=== PATIENT | male | born 1985 | race Caucasian/White ===

== ENCOUNTER 2018-02-10 17:32 | Inpatient (IN) | payer OTHER ==
[2018-02-10] MEDS ORDERED: Sodium Chloride 0.9% 1000 ML 1,000 ML IV STA (17:57)
[2018-02-10] MEDS ORDERED: TYLENOL 325 MG ONE (17:58)
[2018-02-10] MEDS ORDERED: Sodium Chloride 0.9% 1000 ML 2,000 ML ONE ×2 (17:59→18:39)
[2018-02-10] MEDS ORDERED: Zithromax 500 MG/ 250 ML NaCl Premix 500 MG/250 ML IVPB IV STA (18:03)
[2018-02-10] MEDS ORDERED: Zosyn 3.375GM/100 Ml D5W 3.375 GM/100 ML IVPB IV STA (18:03)
[2018-02-10] MEDS ORDERED: TYLENOL 325 MG PO STA (18:03)
[2018-02-10 18:06] LABS: Lactic Acid 3.3 (0.4-2.0)
[2018-02-10] MEDS ORDERED: DUONEB 0.5-3 MG/3 ml Neb IH ONE ×2 (18:08→19:23)
[2018-02-10] MEDS: Sodium Chloride 0.9% 1000 ML 1,000 ML IV SCH ×3 (18:10→19:02)
[2018-02-10 18:15] LABS: A-aADO2 43; ABG POTASSIUM 3.2 (3.5-5.1); ABG SITE LEFT RADIAL; ALLEN TEST OK? YES; ARTERIAL BLD GAS O2 SATURATION 97.6 % (95-100); ARTERIAL BLOOD GAS BASE EXCESS -0.3 (-2.0-2.0); ARTERIAL BLOOD GAS FIO2 21 %; ARTERIAL BLOOD GAS PCO2 32 mmHg (35-45); ARTERIAL BLOOD GAS PO2 67 mmHg (75-100); ARTERIAL BLOOD GAS pH 7.46 (7.35-7.45); CARBOXYHEMOGLOBIN 2.9 % THgb (0.0-6.9); HCO3- 22.8 (22-28); HGB O2 SAT 93.5 g/dF (94-100); Methhemoglobin 1.3 % (1.4-1.5); paO2 pAO1 0.61
[2018-02-10] MEDS ORDERED: Hydromorphone 1 mg/ml Ampule IV ONE (18:34)
[2018-02-10] MEDS ORDERED: Zofran 4 MG/2 ML VIAL IV ONE (18:34)
[2018-02-10] MEDS ORDERED: Hydromorphone 1 mg/ml Ampule ONE (18:39)
[2018-02-10] MEDS ORDERED: Zithromax 500 MG/ 250 ML NaCl Premix 500 MG/250 ML IVPB IV ONE (18:39)
[2018-02-10] MEDS ORDERED: Zofran 4 MG/2 ML VIAL ONE (18:39)
[2018-02-10] MEDS ORDERED: Zosyn 3.375GM/100 Ml D5W 3.375 GM/100 ML IVPB IV ONE (18:39)
[2018-02-10 18:48] LABS: Mean Cell Volume 88.5 fl (78-100); Mean Platelet Volume 9.6 fl (6-9.5); Platelet Count 207 K/mm3 (150-450); Red Blood Count 4.52 M/mm3 (4.1-5.6); Red Cell Distribution Width 12.7 % (11.5-14.0); White Blood Count 22.1 K/mm3 (4.0-10.5)
[2018-02-10 18:49] LABS: ALBUMIN 3.7 g/dL (3.5-5.0); ALKALINE PHOSPHATASE 103 U/L (38-126); ANION GAP 12.8 MEQ/L (5-15); BLOOD UREA NITROGEN 11 mg/dL (9-20); CHLORIDE 97 mmol/L (98-107); Calcium 8.9 mg/dL (8.4-10.2); Carbon Dioxide 27 mmol/L (22-30); Creatinine 1 0.86 mg/dL (0.66-1.25); Glucose 124 mg/dL (74-106); Potassium 3.6 mmol/L (3.5-5.1); SGOT/AST 65 U/L (17-59); SGPT/ALT 152 U/L (0-50); SODIUM 133 mmol/L (137-145); Total Protein 6.8 g/dL (6.3-8.2)
[2018-02-10 19:03] LABS: INR 1.24 (0.8-3.0)
[2018-02-10 19:18] LABS: INFLUENZA A NEGATIVE (NEGATIVE); INFLUENZA B NEGATIVE (NEGATIVE); RESPIRATORY SYNCTIAL VIRUS NEGATIVE (Negative)
[2018-02-10 19:20] LABS: Appearance CLEAR (CLEAR); Bilirubin NEGATIVE (NEGATIVE); Blood NEGATIVE Ery/ul (0-5); Glucose NEGATIVE (NEGATIVE); Ketones NEGATIVE (NEGATIVE); Leukocyte Esterase NEGATIVE (NEGATIVE); Nitrite NEGATIVE (NEGATIVE); Protein,Urine Dip NEGATIVE (Negative); Specific Gravity 1.008 (1.005-1.025); Urobilinogen 4 mg/dL (0-1)
--- NOTE | 2018-02-10 19:27 | ERPHSYRPT ---
- History of Present Illness Time Seen by Provider: 02/10/18 18:20 Source: patient, family Exam Limitations: clinical condition Patient Subjective Stated Complaint: fever, cough, aches, headache Triage Nursing Assessment: Pt c/o of having a fever and a cough for the past week, generalized aches, headache, chest hurts from coughing, pulses normal, tachycardic, tachypnea, T 102.9, pulses normal, coughing up yellowish thinner sputum (had been thick and green), reports getting worn out just from walking Physician History: PATIENT COMPLAINS OF A PRODUCTIVE COUGH X 6-7 DAYS ASSOCIATED WITH FEVER GENERALIZED BODY ACHES, AND CHILLS, RECENTLY THE PATIENT COMPLAINS OF DYSPNEA UPON EXERTION AND PALPITATIONS. PATIENT COMPLAINS OF PAIN OVER BOTH SIDES OF CHEST UPON DEEP INSPIRATION AND COUGHING. Timing/Duration: week(s) Cough Quality/Degree: productive cough, blood streaked sputum Possible Cause: no prior episodes Modifying Factors: Improves With: activity, coughing, deep breath Associated Symptoms: fever, chills, chest pain/soreness, muscle aches, shortness of breath, sore throat International travel in last 2 weeks: No Allergies/Adverse Reactions: No Known Drug Allergies Allergy (Verified 02/10/18 17:54) Home Medications: No Reportable Medications [No Reported Medications] 02/10/18 [History] Hx Influenza Vaccination/Date Given: No - Review of Systems Constitutional: Fever, Chills Eyes: No Symptoms Ears, Nose, & Throat: Throat Pain Respiratory: Cough, Dyspnea on Exertion ([place]UD[place]), No Dyspnea Cardiac: Palpitations, No Chest Pain, No Edema, No Syncope Abdominal/Gastrointestinal: No Abdominal Pain, No Nausea, No Vomiting, No Diarrhea Genitourinary Symptoms: No Dysuria Musculoskeletal: Arthralgias, No Back Pain, No Neck Pain Skin: No Rash Neurological: No Dizziness, No Focal Weakness, No Sensory Changes Psychological: No Symptoms Endocrine: No Symptoms All Other Systems: Reviewed and Negative - Past Medical History Pertinent Past Medical History: No Cardiac History: Other Other Medical History: heart murmur - Past Surgical History Past Surgical History: Yes Musculoskeletal: Orthopedic Surgery Other Surgical History: hand and foot - Social History Smoking Status: Current every day smoker How long have you smoked: 4 years Exposure to second hand smoke: Yes Drug Use: marijuana Patient Lives Alone: No - Nursing Vital Signs Nursing Vital Signs: Initial Vital Signs Temperature 102.9 F 02/10/18 17:42 Pulse Rate 133 H 02/10/18 17:42 Respiratory Rate 38 H 02/10/18 17:42 Blood Pressure 133/73 02/10/18 17:42 O2 Sat by Pulse Oximetry 97 02/10/18 17:42 Pain Scale Pain Intensity 5 - Physical Exam General Appearance: mild distress Eye Exam: PERRL/EOMI, eyes nml inspection Ears, Nose, Throat Exam: normal ENT inspection, TMs normal, pharynx normal, moist mucous membranes Neck Exam: normal inspection, non-tender, supple, full range of motion Respiratory Exam: diminished breath sounds (AT THE RIGHT BASE WITH TERMINAL EXPIRATORY WHEEZES), other (THERE IS NO RETRACTIONS, ACCESSORY MUSCLE USE OR LABORED BREATHING) Cardiovascular Exam: regular rate/rhythm, tachycardia Gastrointestinal/Abdomen Exam: soft, normal bowel sounds (NONTENDER) Extremity Exam: normal inspection, normal range of motion Neurologic Exam: alert, oriented x 3, cooperative, 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 Skin Exam: normal color, warm, dry SpO2 Interpretation: normal SpO2: 98 Oxygen Delivery: Nasal Cannula - Course EKG Interpreted by Me: RATE, Sinus Rhythm, NORMAL AXIS, Right Bundle Branch Block (RATE OF 121) - Radiology Exams Chest X-ray Interpretation: Interpreted by me (RIGHT MIDDLE AND LOWER LOBE INFILTRATES ) - CT Exams Chest CT Interpretation: Tele-radiologist Report (LARGE AREAS OF CONSOLIDATION WITH AIR BRONCHIOGRAMS IN THE RIGHT LOWER LOBE AND RIGHT MIDDLE LOVE) Ordered Tests: Active Orders 24 hr Category Date Time Status Air Twist Operator STAT Care 02/10/18 18:07 Active EKG-ER Only STAT Care 02/10/18 18:03 Active IV Insertion STAT Care 02/10/18 18:03 Active IV Insertion-2nd Peripheral STAT Care 02/10/18 18:03 Active Oxygen-ED Only NASAL CANNULA 2 lpm Care 02/10/18 18:08 Active Pulse Oximetry (ED) STAT Care 02/10/18 18:03 Active CHEST 2 VIEWS (PA AND LAT) Stat Exams 02/10/18 18:03 Taken CHEST WITH CONTRAST [CT] Stat Exams 02/10/18 18:55 Taken ARTERIAL BLOOD GASES Stat Lab 02/10/18 18:03 Completed BLOOD CULTURE Stat Lab 02/10/18 18:16 Received CBC W DIFF Stat Lab 02/10/18 18:16 Completed CMP Stat Lab 02/10/18 18:16 Completed Lactic Acid Stat Lab 02/10/18 17:57 Completed Lactic Acid Stat Lab 02/10/18 19:45 Results Lactic Acid Stat Lab 02/10/18 20:06 Ordered Manual Differential NC Stat Lab 02/10/18 18:16 Completed PROTIME WITH INR Stat Lab 02/10/18 18:16 Completed TROPONIN Q3H Lab 02/10/18 18:15 Completed TROPONIN Q3H Lab 02/10/18 21:15 Completed TROPONIN Q3H Lab 02/11/18 00:15 Ordered TROPONIN Q3H Lab 02/11/18 03:15 Ordered TROPONIN Q3H Lab 02/11/18 06:15 Ordered Urinalysis with Microscopy Stat Lab 02/10/18 19:06 Completed Respiratory Nebulizer STAT RT 02/10/18 18:09 Completed Respiratory Therapy Assessment DAILY RT 02/10/18 19:29 Active Transfer Order Routine Transfer 02/10/18 Ordered Medication Summary Generic Name Dose Route Start Last Admin Trade Name Freq PRN Reason Stop Dose Admin Sodium Chloride 1,000 mls @ 999 mls/hr 02/10/18 18:15 02/10/18 20:02 Sodium Chloride 0.9% 1000 Ml IV 02/10/18 21:15 Infused .Q1H1M STEPHANE Infusion Sodium Chloride 1,000 mls @ 200 mls/hr 02/10/18 19:45 02/10/18 19:56 Sodium Chloride 0.9% 1000 Ml IV 03/12/18 19:44 200 mls/hr .Q5H STEPHANE Administration Sodium Chloride 1,000 mls @ 200 mls/hr 02/10/18 19:45 02/10/18 19:55 Sodium Chloride 0.9% 1000 Ml IV 03/12/18 19:44 200 mls/hr .Q5H STEPHANE Administration Discontinued Medications Generic Name Dose Route Start Last Admin Trade Name Freq PRN Reason Stop Dose Admin Acetaminophen Confirm 02/10/18 17:58 Tylenol 325 Mg Administered 02/10/18 17:59 Dose 975 mg .ROUTE .STK-MED ONE Acetaminophen 975 mg 02/10/18 18:03 02/10/18 18:09 Tylenol 325 Mg PO 02/10/18 18:04 975 mg STAT STA Administration Albuterol/Ipratropium 3 ml 02/10/18 18:08 02/10/18 19:23 Duoneb 0.5-3 Mg/3 Ml Neb IH 02/10/18 18:09 3 ml STAT ONE Administration Albuterol/Ipratropium Confirm 02/10/18 19:23 Duoneb 0.5-3 Mg/3 Ml Neb Administered 02/10/18 19:24 Dose 3 ml IH .STK-MED ONE Hydromorphone HCl 1 mg 02/10/18 18:34 02/10/18 18:50 Hydromorphone 1 Mg/Ml Ampule IV 02/10/18 18:35 1 mg STAT ONE Administration Hydromorphone HCl Confirm 02/10/18 18:39 Hydromorphone 1 Mg/Ml Ampule Administered 02/10/18 18:40 Dose 1 mg .ROUTE .STK-MED ONE Sodium Chloride Confirm 02/10/18 17:59 Sodium Chloride 0.9% 1000 Ml Administered 02/10/18 18:00 Dose 2,000 mls @ ud .ROUTE .STK-MED ONE Sodium Chloride 1,000 mls @ 999 mls/hr 02/10/18 17:57 02/10/18 18:56 Sodium Chloride 0.9% 1000 Ml IV 02/10/18 18:57 Infused .Q1H1M STA Infusion Azithromycin 500 mg in 250 mls @ 250 mls/hr 02/10/18 18:03 02/10/18 20:06 Zithromax 500 Mg/ 250 Ml Nacl Premix IV 02/10/18 19:02 Infused STAT STA Infusion Piperacillin Sod/Tazobactam Sod 3.375 gm in 100 mls @ 200 mls/hr 02/10/18 18: 03 02/10/18 19:36 Zosyn 3.375gm/100 Ml D5w IV 02/10/18 18:32 Infused STAT STA Infusion Azithromycin Confirm 02/10/18 18:39 Zithromax 500 Mg/ 250 Ml Nacl Premix Administered 02/10/18 18:40 Dose 500 mg in 250 mls @ ud IV .STK-MED ONE Piperacillin Sod/Tazobactam Sod Confirm 02/10/18 18:39 Zosyn 3.375gm/100 Ml D5w Administered 02/10/18 18:40 Dose 3.375 gm in 100 mls @ ud IV .STK-MED ONE Ondansetron HCl 4 mg 02/10/18 18:34 02/10/18 18:50 Zofran 4 Mg/2 Ml Vial IV 02/10/18 18:35 4 mg STAT ONE Administration Ondansetron HCl Confirm 02/10/18 18:39 Zofran 4 Mg/2 Ml Vial Administered 02/10/18 18:40 Dose 4 mg .ROUTE .STK-MED ONE Lab/Rad Data: Laboratory Result Diagrams 02/10/18 18:16 02/10/18 18:16 Laboratory Results 02/10/18 02/10/18 02/10/18 Range/Units Unknown 21:15 19:45 WBC (4.0-10.5) K/mm3 RBC (4.1-5.6) M/mm3 Hgb (12.5-18.0) gm/dl Hct (42-50) % MCV (78-100) fl MCH (26-32) pg MCHC (32-36) g/dl RDW (11.5-14.0) % Plt Count (150-450) K/mm3 MPV (6-9.5) fl PT (8.83-12.87) SECONDS INR (0.8-3.0) Puncture Site pCO2 (35-45) mmHg pO2 (75-100) mmHg Base Excess (-2.0-2.0) O2 Saturation (94-100) g/dF ABG pH (7.35-7.45) ABG HCO3 (22-28) ABG O2 Sat (Measured) (95-100) % Michael Test A-a Gradient a/A Ratio Hemoglobin Carboxyhemoglobin (0.0-6.9) % THgb Methemoglobin (1.4-1.5) % Potassium (3.5-5.1) Temperature C POC O2 Flow Rate % Sodium (137-145) mmol/L Chloride (98-107) mmol/L Carbon Dioxide (22-30) mmol/L Anion Gap (5-15) MEQ/L BUN (9-20) mg/dL Creatinine (0.66-1.25) mg/dL Estimated GFR ML/MIN Glucose (74-106) mg/dL Lactic Acid 2.1 H (0.4-2.0) Calcium (8.4-10.2) mg/dL Total Bilirubin (0.2-1.3) mg/dL AST (17-59) U/L ALT (0-50) U/L Alkaline Phosphatase (38-126) U/L Troponin I < 0.012 (0.000-0.034) ng/mL Serum Total Protein (6.3-8.2) g/dL Albumin (3.5-5.0) g/dL Urine Color (YELLOW) Urine Appearance (CLEAR) Urine pH (5-6) Ur Specific [place] (1.005-1.025) Urine Protein (Negative) Urine Ketones (NEGATIVE) Urine Blood (0-5) Daniel/ul Urine Nitrite (NEGATIVE) Urine Bilirubin (NEGATIVE) Urine Urobilinogen (0-1) mg/dL Ur Leukocyte Esterase (NEGATIVE) Urine WBC (Auto) (0-5) /HPF Urine RBC (Auto) (0-2) /HPF U Epithel Cells (Auto) (FEW) /HPF Urine Bacteria (Auto) (NEGATIVE) /HPF U Non-Squamous Epi Cells (FEW) /HPF Urine Glucose (NEGATIVE) mg/dL Influenza Type A Ag (NEGATIVE) Influenza Type B Ag (NEGATIVE) RSV (PCR) (Negative) Group A Strep Antibody NEGATIVE (NEGATIVE) 02/10/18 02/10/18 02/10/18 Range/Units 19:06 18:16 18:16 WBC (4.0-10.5) K/mm3 RBC (4.1-5.6) M/mm3 Hgb (12.5-18.0) gm/dl Hct (42-50) % MCV (78-100) fl MCH (26-32) pg MCHC (32-36) g/dl RDW (11.5-14.0) % Plt Count (150-450) K/mm3 MPV (6-9.5) fl PT 14.4 H (8.83-12.87) SECONDS INR 1.24 (0.8-3.0) Puncture Site pCO2 (35-45) mmHg pO2 (75-100) mmHg Base Excess (-2.0-2.0) O2 Saturation (94-100) g/dF ABG pH (7.35-7.45) ABG HCO3 (22-28) ABG O2 Sat (Measured) (95-100) % Michael Test A-a Gradient a/A Ratio Hemoglobin Carboxyhemoglobin (0.0-6.9) % THgb Methemoglobin (1.4-1.5) % Potassium (3.5-5.1) Temperature C POC O2 Flow Rate % Sodium (137-145) mmol/L Chloride (98-107) mmol/L Carbon Dioxide (22-30) mmol/L Anion Gap (5-15) MEQ/L BUN (9-20) mg/dL Creatinine (0.66-1.25) mg/dL Estimated GFR ML/MIN Glucose (74-106) mg/dL Lactic Acid (0.4-2.0) Calcium (8.4-10.2) mg/dL Total Bilirubin (0.2-1.3) mg/dL AST (17-59) U/L ALT (0-50) U/L Alkaline Phosphatase (38-126) U/L Troponin I (0.000-0.034) ng/mL Serum Total Protein (6.3-8.2) g/dL Albumin (3.5-5.0) g/dL Urine Color YELLOW (YELLOW) Urine Appearance CLEAR (CLEAR) Urine pH 6.0 (5-6) Ur Specific [place] 1.008 (1.005-1.025) Urine Protein NEGATIVE (Negative) Urine Ketones NEGATIVE (NEGATIVE) Urine Blood NEGATIVE (0-5) Daniel/ul Urine Nitrite NEGATIVE (NEGATIVE) Urine Bilirubin NEGATIVE (NEGATIVE) Urine Urobilinogen 4 (0-1) mg/dL Ur Leukocyte Esterase NEGATIVE (NEGATIVE) Urine WBC (Auto) 0-2 (0-5) /HPF Urine RBC (Auto) NONE (0-2) /HPF U Epithel Cells (Auto) RARE (FEW) /HPF Urine Bacteria (Auto) NONE (NEGATIVE) /HPF U Non-Squamous Epi Cells RARE (FEW) /HPF Urine Glucose NEGATIVE (NEGATIVE) mg/dL Influenza Type A Ag NEGATIVE (NEGATIVE) Influenza Type B Ag NEGATIVE (NEGATIVE) RSV (PCR) NEGATIVE (Negative) Group A Strep Antibody (NEGATIVE) 02/10/18 02/10/18 02/10/18 Range/Units 18:16 18:16 18:15 WBC 22.1 H (4.0-10.5) K/mm3 RBC 4.52 (4.1-5.6) M/mm3 Hgb 14.0 (12.5-18.0) gm/dl Hct 40.0 L (42-50) % MCV 88.5 (78-100) fl MCH 31.0 (26-32) pg MCHC 35.0 (32-36) g/dl RDW 12.7 (11.5-14.0) % Plt Count 207 (150-450) K/mm3 MPV 9.6 H (6-9.5) fl PT (8.83-12.87) SECONDS INR (0.8-3.0) Puncture Site pCO2 (35-45) mmHg pO2 (75-100) mmHg Base Excess (-2.0-2.0) O2 Saturation (94-100) g/dF ABG pH (7.35-7.45) ABG HCO3 (22-28) ABG O2 Sat (Measured) (95-100) % Michael Test A-a Gradient a/A Ratio Hemoglobin Carboxyhemoglobin (0.0-6.9) % THgb Methemoglobin (1.4-1.5) % Potassium 3.6 (3.5-5.1) Temperature C POC O2 Flow Rate % Sodium 133 L (137-145) mmol/L Chloride 97 L (98-107) mmol/L Carbon Dioxide 27 (22-30) mmol/L Anion Gap 12.8 (5-15) MEQ/L BUN 11 (9-20) mg/dL Creatinine 0.86 (0.66-1.25) mg/dL Estimated GFR > 60.0 ML/MIN Glucose 124 H (74-106) mg/dL Lactic Acid (0.4-2.0) Calcium 8.9 (8.4-10.2) mg/dL Total Bilirubin 1.20 (0.2-1.3) mg/dL AST 65 H (17-59) U/L ALT 152 H (0-50) U/L Alkaline Phosphatase 103 (38-126) U/L Troponin I < 0.012 (0.000-0.034) ng/mL Serum Total Protein 6.8 (6.3-8.2) g/dL Albumin 3.7 (3.5-5.0) g/dL Urine Color (YELLOW) Urine Appearance (CLEAR) Urine pH (5-6) Ur Specific [place] (1.005-1.025) Urine Protein (Negative) Urine Ketones (NEGATIVE) Urine Blood (0-5) Daniel/ul Urine Nitrite (NEGATIVE) Urine Bilirubin (NEGATIVE) Urine Urobilinogen (0-1) mg/dL Ur Leukocyte Esterase (NEGATIVE) Urine WBC (Auto) (0-5) /HPF Urine RBC (Auto) (0-2) /HPF U Epithel Cells (Auto) (FEW) /HPF Urine Bacteria (Auto) (NEGATIVE) /HPF U Non-Squamous Epi Cells (FEW) /HPF Urine Glucose (NEGATIVE) mg/dL Influenza Type A Ag (NEGATIVE) Influenza Type B Ag (NEGATIVE) RSV (PCR) (Negative) Group A Strep Antibody (NEGATIVE) 02/10/18 02/10/18 Range/Units 18:03 17:57 WBC (4.0-10.5) K/mm3 RBC (4.1-5.6) M/mm3 Hgb (12.5-18.0) gm/dl Hct (42-50) % MCV (78-100) fl MCH (26-32) pg MCHC (32-36) g/dl RDW (11.5-14.0) % Plt Count (150-450) K/mm3 MPV (6-9.5) fl PT (8.83-12.87) SECONDS INR (0.8-3.0) Puncture Site LEFT RADIAL pCO2 32 L (35-45) mmHg pO2 67 L (75-100) mmHg Base Excess -0.3 (-2.0-2.0) O2 Saturation 93.5 L (94-100) g/dF ABG pH 7.46 H (7.35-7.45) ABG HCO3 22.8 (22-28) ABG O2 Sat (Measured) 97.6 (95-100) % Michael Test YES A-a Gradient 43 a/A Ratio 0.61 Hemoglobin 13.0 Carboxyhemoglobin 2.9 (0.0-6.9) % THgb Methemoglobin 1.3 L (1.4-1.5) % Potassium 3.2 L (3.5-5.1) Temperature 37.0 C POC O2 Flow Rate 21 % Sodium (137-145) mmol/L Chloride (98-107) mmol/L Carbon Dioxide (22-30) mmol/L Anion Gap (5-15) MEQ/L BUN (9-20) mg/dL Creatinine (0.66-1.25) mg/dL Estimated GFR ML/MIN Glucose (74-106) mg/dL Lactic Acid 3.3 H (0.4-2.0) Calcium (8.4-10.2) mg/dL Total Bilirubin (0.2-1.3) mg/dL AST (17-59) U/L ALT (0-50) U/L Alkaline Phosphatase (38-126) U/L Troponin I (0.000-0.034) ng/mL Serum Total Protein (6.3-8.2) g/dL Albumin (3.5-5.0) g/dL Urine Color (YELLOW) Urine Appearance (CLEAR) Urine pH (5-6) Ur Specific [place] (1.005-1.025) Urine Protein (Negative) Urine Ketones (NEGATIVE) Urine Blood (0-5) Daniel/ul Urine Nitrite (NEGATIVE) Urine Bilirubin (NEGATIVE) Urine Urobilinogen (0-1) mg/dL Ur Leukocyte Esterase (NEGATIVE) Urine WBC (Auto) (0-5) /HPF Urine RBC (Auto) (0-2) /HPF U Epithel Cells (Auto) (FEW) /HPF Urine Bacteria (Auto) (NEGATIVE) /HPF U Non-Squamous Epi Cells (FEW) /HPF Urine Glucose (NEGATIVE) mg/dL Influenza Type A Ag (NEGATIVE) Influenza Type B Ag (NEGATIVE) RSV (PCR) (Negative) Group A Strep Antibody (NEGATIVE) - Progress Progress: re-examined Progress Note: 02/10/18 19:35 PATIENT PLACED ONTO SEPSIS PROTOCOL, ADMINISTERED NORMAL SALINE 2 LITERS/HOUR X 2, AFTER 2 SETS OF BLOOD CULTURES IV ZOSYN 3.375GM ALONG WITH ZITHROMAX 500MG IVPB, LACTIC ACID-3.3, REPEAT TEMP 100.7 02/10/18 20:04 REPEAT LACTIC ACID 2.1 Blood Culture(s) Obtained: Yes Antibiotics given: Yes Discussed with Dr.: Schulte (DISCUSSED WITH DR SCHULTE AT 1945 FOR ADMISSION) - Departure Time of Disposition: 21:34 Departure Disposition: Observation Clinical Impression: PNEUMONIA, SEPTICEMIA Condition: Stable Critical Care Time: No Referrals: DOCTOR,NO FAMILY [Primary Care Provider] -
[2018-02-10] MEDS ORDERED: Sodium Chloride 0.9% 1000 ML 1,000 ML IV SCH ×2 (19:45)
[2018-02-10 19:59] LABS: Lactic Acid 2.1 (0.4-2.0)
[2018-02-10] MEDS ORDERED: Xopenex 1.25 MG/0.5 ML UD NEBULE IH PRN (22:11)
[2018-02-10] MEDS ORDERED: DUONEB 0.5-3 MG/3 ml Neb IH PRN (22:11)
[2018-02-10] MEDS ORDERED: ENOXAPARIN SODIUM SQ SCH (23:00)
[2018-02-10] MEDS ORDERED: Zofran 4 MG/2 ML VIAL IV PRN (23:11)
[2018-02-10] MEDS: DILAUDID 2 MG INJECTION IV PRN (23:24)
[2018-02-10] MEDS: Zosyn 3.375GM/100 Ml D5W 3.375 GM/100 ML IVPB IV SCH (23:33)
[2018-02-10] MEDS: NICODERM CQ 14 MG TOP SCH (23:33)
[2018-02-11] MEDS ORDERED: Zosyn 3.375GM/100 Ml D5W 3.375 GM/100 ML IVPB IV SCH
[2018-02-11] MEDS: TYLENOL 325 MG PO PRN (00:11)
[2018-02-11] MEDS: Sodium Chloride 0.9% 1000 ML 1,000 ML IV SCH ×3 (01:31→18:15)
[2018-02-11 03:51] LABS: BASOPHIL % 0.1 % (0.0-0.4); Basophil (Absolute #) 0.01 (0-0.4); Eosinophil % 0.1 % (0.00-5.0); Eosinophil (Absolute #) 0.01 (0-0.5); Granulocyte Absolute (ANC) 14.26 (1.4-6.9); Granulocytes % 86.2 % (36.0-66.0); Hematocrit 33.3 % (42-50); Hemoglobin 11.6 gm/dl (12.5-18.0); Lymphocyte (Absolute #) 0.89 (1.0-4.6); Lymphocytes % 5.4 % (24.0-44.0); Mean Cell Volume 89.5 fl (78-100); Mean Corpuscular Hgb Concent. 34.8 g/dl (32-36); Mean Platelet Volume 9.2 fl (6-9.5); Monocyte (Absolute #) 1.35 (0.0-1.3); Monocytes % 8.2 % (0.0-12.0); Platelet Count 149 K/mm3 (150-450); Red Blood Count 3.72 M/mm3 (4.1-5.6); Red Cell Distribution Width 12.6 % (11.5-14.0); White Blood Count 16.5 K/mm3 (4.0-10.5)
[2018-02-11 03:53] LABS: Mean Corpuscular Hemoglobin 31.1 pg (26-32)
[2018-02-11 04:32] LABS: ALBUMIN 2.4 g/dL (3.5-5.0); ALKALINE PHOSPHATASE 73 U/L (38-126); ANION GAP 9.1 MEQ/L (5-15); BLOOD UREA NITROGEN 8 mg/dL (9-20); CHLORIDE 106 mmol/L (98-107); Calcium 7.5 mg/dL (8.4-10.2); Carbon Dioxide 22 mmol/L (22-30); Creatinine 1 0.69 mg/dL (0.66-1.25); Glucose 108 mg/dL (74-106); Potassium 3.7 mmol/L (3.5-5.1); SGOT/AST 34 U/L (17-59); SGPT/ALT 103 U/L (0-50); SODIUM 133 mmol/L (137-145); Total Protein 5.1 g/dL (6.3-8.2)
[2018-02-11 05:15] LABS: ANISOCYTOSIS 1+; BAND 10 % (0.0-2.0); Lymphocytes 3 % (24-44); Monocyte 6 % (0.0-12.0); Neutrophils 81 % (36.-66.); Platelet Estimate NORMAL (NORMAL); Total Cells Counted 100
[2018-02-11 05:25] LABS: BAND 11 % (0.0-2.0); Lymphocytes 3 % (24-44); Monocyte 6 % (0.0-12.0); Neutrophils 80 % (36.-66.); Platelet Estimate NORMAL (NORMAL); Total Cells Counted 100
[2018-02-11 05:26] LABS: ANISOCYTOSIS 1+
[2018-02-11] MEDS: Zosyn 3.375GM/100 Ml D5W 3.375 GM/100 ML IVPB IV SCH ×3 (05:32→18:15)
--- NOTE | 2018-02-11 07:08 | XRAY ---
Indication: Fever, cough, congestion. Comparison: None PA/lateral chest demonstrates right middle and right lower lobe pneumonic infiltrates without large effusion. Remaining heart, lungs, and bony thorax normal.
--- NOTE | 2018-02-11 07:11 | XRAY ---
Indication: Hemoptysis. Pneumonia. Multiple contiguous axial images obtained through the chest using 100 cc Isovue 370 contrast and PE protocol. Comparison: None There is good opacification of the pulmonary arteries to include the lobar and segmental branches. No filling defect or pulmonary embolus. Heart is not enlarged. Aorta is normal in course and caliber. Right hilar calcified nodes. No pathologic mediastinal/hilar lymphadenopathy. Examination of the lung parenchyma demonstrates right lower lobe and lesser degree right middle lobe consolidating airspace disease. No large effusion. 6 mm subpleural noncalcified nodule in the right middle lobe probably granulomatous. Mild left lung base dependent atelectasis. Bony thorax intact. Limited upper abdomen demonstrates 13.1 cm splenomegaly. Impression: 1. Negative pulmonary embolus. 2. Right middle and right lower lobe consolidating airspace disease. 3. 6 mm right middle lobe noncalcified nodule probably granulomatous in this demographic. 4. Incidental splenomegaly. Comment: Preliminary interpretation was made by [facility]. No discrepancy. CTDI 16.34
[2018-02-11] MEDS ORDERED: Colace 100 MG PO PRN (08:37)
[2018-02-11] MEDS: MOTRIN 600 MG PO PRN ×2 (08:47→18:22)
[2018-02-11] MEDS ORDERED: Zithromax 500 MG/ 250 ML NaCl Premix 250 ML IV SCH (10:00)
[2018-02-11] MEDS: DILAUDID 2 MG INJECTION IV PRN ×2 (12:22→19:25)
--- NOTE | 2018-02-11 12:36 | PCM.NOTE ---
Date and Time: 02/11/18 1231 Subjective Assessment: Patient reports he feels better and the dilaudid helped with his right sided chest wall pain. He reports his appetite has been good. He has no concerns at this time. He continues to have a productive cough also. - Review of Systems Constitutional: Weight Loss Eyes: No Symptoms Ears, Nose, & Throat: No Symptoms Respiratory: Cough Cardiac: Other (chest wall pain) Abdominal/Gastrointestinal: No Symptoms Genitourinary Symptoms: No Symptoms Musculoskeletal: No Symptoms Objective Exam General Appearance: no apparent distress, alert, other (significant other at bedside) Neurologic Exam: alert, cooperative, normal mood/affect Skin Exam: normal color, warm, dry, No rash Respiratory Exam: airway intact, other (decreased breath sounds at right base, clear in left lung aldrich) Cardiovascular Exam: tachycardia, other (normal rhythm), No murmur, No friction rub, No gallop Gastrointestinal/Abdomen Exam: soft, normal bowel sounds, No tenderness, No distention, No mass Extremity Exam: other (no c/c/e) OBJECTIVE DATA Vital Signs: Vital Signs - 24 hr Temp Pulse Resp BP Pulse Ox 02/11/18 12:09 95 H 20 96 02/11/18 10:00 99.5 F 97 H 21 117/69 96 02/11/18 08:00 99 H 24 02/11/18 06:07 99 H 20 108/56 95 02/11/18 04:00 99.0 F 104 H 17 106/62 95 02/11/18 03:02 109 H 18 107/55 94 L 02/11/18 02:00 109 H 99/58 02/11/18 00:01 107 H 02/11/18 00:00 100.5 F 107 H 22 112/56 95 02/10/18 23:56 108 H 22 94 L 02/10/18 22:33 99.7 F 106 H 29 H 102/63 98 02/10/18 21:30 98 02/10/18 21:27 108 H 24 93/61 96 02/10/18 20:52 116 H 24 118/61 97 02/10/18 19:38 100.7 F 124 H 28 H 100/58 96 02/10/18 19:29 120 H 34 H 98 02/10/18 19:07 118 H 28 H 112/57 98 02/10/18 18:56 102.9 F 123 H 33 H 113/64 100 02/10/18 18:39 102.9 F 121 H 37 H 123/79 100 02/10/18 18:08 97 02/10/18 17:42 102.9 F 133 H 38 H 133/73 97 Oxygen-Last 24 hours O2 Percentage 2 Liters = 28% O2 Percentage 2 Liters = 28% O2 Percentage 2 Liters = 28% O2 Percentage 2 Liters = 28% O2 Percentage 2 Liters = 28% O2 Percentage 2 Liters = 28% O2 Percentage 2 Liters = 28% O2 Percentage 2 Liters = 28% O2 Percentage 2 Liters = 28% O2 Percentage 2 Liters = 28% O2 Percentage 2 Liters = 28% Oxygen Flowrate (L/min)-RT 2 Pain Assessment - Last Documented Pain Intensity 5 Pain Scale Used 0-10 Pain Scale Intake and Output: Intake & Output 02/09/18 02/10/18 02/11/18 02/12/18 06:59 06:59 06:59 06:59 Intake Total 3206 Output Total 1500 550 Balance 1706 -550 Weight 93.5 kg Lab Results: Lab Results-Last 24 Hours 02/10/18 02/10/18 02/10/18 Range/Units 17:57 18:03 18:15 WBC (4.0-10.5) K/mm3 RBC (4.1-5.6) M/mm3 Hgb (12.5-18.0) gm/dl Hct (42-50) % MCV (78-100) fl MCH (26-32) pg MCHC (32-36) g/dl RDW (11.5-14.0) % Plt Count (150-450) K/mm3 MPV (6-9.5) fl Gran % (36.0-66.0) % Eos # (Auto) (0-0.5) Absolute Lymphs (auto) (1.0-4.6) Absolute Monos (auto) (0.0-1.3) Lymphocytes % (24.0-44.0) % Monocytes % (0.0-12.0) % Eosinophils % (0.00-5.0) % Basophils % (0.0-0.4) % Absolute Granulocytes (1.4-6.9) Segmented Neutrophils (36.-66.) % Band Neutrophils (0.0-2.0) % Lymphocytes (Manual) (24-44) % Monocytes (Manual) (0.0-12.0) % Basophils # (0-0.4) Platelet Estimate (NORMAL) RBC Morphology Anisocytosis PT (8.83-12.87) SECONDS INR (0.8-3.0) Puncture Site LEFT RADIAL pCO2 32 L (35-45) mmHg pO2 67 L (75-100) mmHg Base Excess -0.3 (-2.0-2.0) O2 Saturation 93.5 L (94-100) g/dF ABG pH 7.46 H (7.35-7.45) ABG HCO3 22.8 (22-28) ABG O2 Sat (Measured) 97.6 (95-100) % Michael Test YES A-a Gradient 43 a/A Ratio 0.61 Hemoglobin 13.0 Carboxyhemoglobin 2.9 (0.0-6.9) % THgb Methemoglobin 1.3 L (1.4-1.5) % Potassium 3.2 L (3.5-5.1) Temperature 37.0 C POC O2 Flow Rate 21 % Sodium (137-145) mmol/L Chloride (98-107) mmol/L Carbon Dioxide (22-30) mmol/L Anion Gap (5-15) MEQ/L BUN (9-20) mg/dL Creatinine (0.66-1.25) mg/dL Estimated GFR ML/MIN Glucose (74-106) mg/dL Lactic Acid 3.3 H (0.4-2.0) Calcium (8.4-10.2) mg/dL Total Bilirubin (0.2-1.3) mg/dL AST (17-59) U/L ALT (0-50) U/L Alkaline Phosphatase (38-126) U/L Troponin I < 0.012 (0.000-0.034) ng/mL Serum Total Protein (6.3-8.2) g/dL Albumin (3.5-5.0) g/dL Urine Color (YELLOW) Urine Appearance (CLEAR) Urine pH (5-6) Ur Specific [place] (1.005-1.025) Urine Protein (Negative) Urine Ketones (NEGATIVE) Urine Blood (0-5) Daniel/ul Urine Nitrite (NEGATIVE) Urine Bilirubin (NEGATIVE) Urine Urobilinogen (0-1) mg/dL Ur Leukocyte Esterase (NEGATIVE) Urine WBC (Auto) (0-5) /HPF Urine RBC (Auto) (0-2) /HPF U Epithel Cells (Auto) (FEW) /HPF Urine Bacteria (Auto) (NEGATIVE) /HPF U Non-Squamous Epi Cells (FEW) /HPF Urine Glucose (NEGATIVE) mg/dL Influenza Type A Ag (NEGATIVE) Influenza Type B Ag (NEGATIVE) RSV (PCR) (Negative) Group A Strep Antibody (NEGATIVE) 02/10/18 02/10/18 02/10/18 Range/Units 18:16 18:16 18:16 WBC 22.1 H (4.0-10.5) K/mm3 RBC 4.52 (4.1-5.6) M/mm3 Hgb 14.0 (12.5-18.0) gm/dl Hct 40.0 L (42-50) % MCV 88.5 (78-100) fl MCH 31.0 (26-32) pg MCHC 35.0 (32-36) g/dl RDW 12.7 (11.5-14.0) % Plt Count 207 (150-450) K/mm3 MPV 9.6 H (6-9.5) fl Gran % (36.0-66.0) % Eos # (Auto) (0-0.5) Absolute Lymphs (auto) (1.0-4.6) Absolute Monos (auto) (0.0-1.3) Lymphocytes % (24.0-44.0) % Monocytes % (0.0-12.0) % Eosinophils % (0.00-5.0) % Basophils % (0.0-0.4) % Absolute Granulocytes (1.4-6.9) Segmented Neutrophils 81 H (36.-66.) % Band Neutrophils 10 H (0.0-2.0) % Lymphocytes (Manual) 3 L (24-44) % Monocytes (Manual) 6 (0.0-12.0) % Basophils # (0-0.4) Platelet Estimate NORMAL (NORMAL) RBC Morphology ABNORMAL Anisocytosis 1+ PT 14.4 H (8.83-12.87) SECONDS INR 1.24 (0.8-3.0) Puncture Site pCO2 (35-45) mmHg pO2 (75-100) mmHg Base Excess (-2.0-2.0) O2 Saturation (94-100) g/dF ABG pH (7.35-7.45) ABG HCO3 (22-28) ABG O2 Sat (Measured) (95-100) % Michael Test A-a Gradient a/A Ratio Hemoglobin Carboxyhemoglobin (0.0-6.9) % THgb Methemoglobin (1.4-1.5) % Potassium 3.6 (3.5-5.1) Temperature C POC O2 Flow Rate % Sodium 133 L (137-145) mmol/L Chloride 97 L (98-107) mmol/L Carbon Dioxide 27 (22-30) mmol/L Anion Gap 12.8 (5-15) MEQ/L BUN 11 (9-20) mg/dL Creatinine 0.86 (0.66-1.25) mg/dL Estimated GFR > 60.0 ML/MIN Glucose 124 H (74-106) mg/dL Lactic Acid (0.4-2.0) Calcium 8.9 (8.4-10.2) mg/dL Total Bilirubin 1.20 (0.2-1.3) mg/dL AST 65 H (17-59) U/L ALT 152 H (0-50) U/L Alkaline Phosphatase 103 (38-126) U/L Troponin I (0.000-0.034) ng/mL Serum Total Protein 6.8 (6.3-8.2) g/dL Albumin 3.7 (3.5-5.0) g/dL Urine Color (YELLOW) Urine Appearance (CLEAR) Urine pH (5-6) Ur Specific [place] (1.005-1.025) Urine Protein (Negative) Urine Ketones (NEGATIVE) Urine Blood (0-5) Daniel/ul Urine Nitrite (NEGATIVE) Urine Bilirubin (NEGATIVE) Urine Urobilinogen (0-1) mg/dL Ur Leukocyte Esterase (NEGATIVE) Urine WBC (Auto) (0-5) /HPF Urine RBC (Auto) (0-2) /HPF U Epithel Cells (Auto) (FEW) /HPF Urine Bacteria (Auto) (NEGATIVE) /HPF U Non-Squamous Epi Cells (FEW) /HPF Urine Glucose (NEGATIVE) mg/dL Influenza Type A Ag (NEGATIVE) Influenza Type B Ag (NEGATIVE) RSV (PCR) (Negative) Group A Strep Antibody (NEGATIVE) 02/10/18 02/10/18 02/10/18 Range/Units 18:16 19:06 19:45 WBC (4.0-10.5) K/mm3 RBC (4.1-5.6) M/mm3 Hgb (12.5-18.0) gm/dl Hct (42-50) % MCV (78-100) fl MCH (26-32) pg MCHC (32-36) g/dl RDW (11.5-14.0) % Plt Count (150-450) K/mm3 MPV (6-9.5) fl Gran % (36.0-66.0) % Eos # (Auto) (0-0.5) Absolute Lymphs (auto) (1.0-4.6) Absolute Monos (auto) (0.0-1.3) Lymphocytes % (24.0-44.0) % Monocytes % (0.0-12.0) % Eosinophils % (0.00-5.0) % Basophils % (0.0-0.4) % Absolute Granulocytes (1.4-6.9) Segmented Neutrophils (36.-66.) % Band Neutrophils (0.0-2.0) % Lymphocytes (Manual) (24-44) % Monocytes (Manual) (0.0-12.0) % Basophils # (0-0.4) Platelet Estimate (NORMAL) RBC Morphology Anisocytosis PT (8.83-12.87) SECONDS INR (0.8-3.0) Puncture Site pCO2 (35-45) mmHg pO2 (75-100) mmHg Base Excess (-2.0-2.0) O2 Saturation (94-100) g/dF ABG pH (7.35-7.45) ABG HCO3 (22-28) ABG O2 Sat (Measured) (95-100) % Michael Test A-a Gradient a/A Ratio Hemoglobin Carboxyhemoglobin (0.0-6.9) % THgb Methemoglobin (1.4-1.5) % Potassium (3.5-5.1) Temperature C POC O2 Flow Rate % Sodium (137-145) mmol/L Chloride (98-107) mmol/L Carbon Dioxide (22-30) mmol/L Anion Gap (5-15) MEQ/L BUN (9-20) mg/dL Creatinine (0.66-1.25) mg/dL Estimated GFR ML/MIN Glucose (74-106) mg/dL Lactic Acid 2.1 H (0.4-2.0) Calcium (8.4-10.2) mg/dL Total Bilirubin (0.2-1.3) mg/dL AST (17-59) U/L ALT (0-50) U/L Alkaline Phosphatase (38-126) U/L Troponin I (0.000-0.034) ng/mL Serum Total Protein (6.3-8.2) g/dL Albumin (3.5-5.0) g/dL Urine Color YELLOW (YELLOW) Urine Appearance CLEAR (CLEAR) Urine pH 6.0 (5-6) Ur Specific [place] 1.008 (1.005-1.025) Urine Protein NEGATIVE (Negative) Urine Ketones NEGATIVE (NEGATIVE) Urine Blood NEGATIVE (0-5) Daniel/ul Urine Nitrite NEGATIVE (NEGATIVE) Urine Bilirubin NEGATIVE (NEGATIVE) Urine Urobilinogen 4 (0-1) mg/dL Ur Leukocyte Esterase NEGATIVE (NEGATIVE) Urine WBC (Auto) 0-2 (0-5) /HPF Urine RBC (Auto) NONE (0-2) /HPF U Epithel Cells (Auto) RARE (FEW) /HPF Urine Bacteria (Auto) NONE (NEGATIVE) /HPF U Non-Squamous Epi Cells RARE (FEW) /HPF Urine Glucose NEGATIVE (NEGATIVE) mg/dL Influenza Type A Ag NEGATIVE (NEGATIVE) Influenza Type B Ag NEGATIVE (NEGATIVE) RSV (PCR) NEGATIVE (Negative) Group A Strep Antibody (NEGATIVE) 02/10/18 02/10/18 02/11/18 Range/Units 21:15 Unknown 00:15 WBC (4.0-10.5) K/mm3 RBC (4.1-5.6) M/mm3 Hgb (12.5-18.0) gm/dl Hct (42-50) % MCV (78-100) fl MCH (26-32) pg MCHC (32-36) g/dl RDW (11.5-14.0) % Plt Count (150-450) K/mm3 MPV (6-9.5) fl Gran % (36.0-66.0) % Eos # (Auto) (0-0.5) Absolute Lymphs (auto) (1.0-4.6) Absolute Monos (auto) (0.0-1.3) Lymphocytes % (24.0-44.0) % Monocytes % (0.0-12.0) % Eosinophils % (0.00-5.0) % Basophils % (0.0-0.4) % Absolute Granulocytes (1.4-6.9) Segmented Neutrophils (36.-66.) % Band Neutrophils (0.0-2.0) % Lymphocytes (Manual) (24-44) % Monocytes (Manual) (0.0-12.0) % Basophils # (0-0.4) Platelet Estimate (NORMAL) RBC Morphology Anisocytosis PT (8.83-12.87) SECONDS INR (0.8-3.0) Puncture Site pCO2 (35-45) mmHg pO2 (75-100) mmHg Base Excess (-2.0-2.0) O2 Saturation (94-100) g/dF ABG pH (7.35-7.45) ABG HCO3 (22-28) ABG O2 Sat (Measured) (95-100) % Michael Test A-a Gradient a/A Ratio Hemoglobin Carboxyhemoglobin (0.0-6.9) % THgb Methemoglobin (1.4-1.5) % Potassium (3.5-5.1) Temperature C POC O2 Flow Rate % Sodium (137-145) mmol/L Chloride (98-107) mmol/L Carbon Dioxide (22-30) mmol/L Anion Gap (5-15) MEQ/L BUN (9-20) mg/dL Creatinine (0.66-1.25) mg/dL Estimated GFR ML/MIN Glucose (74-106) mg/dL Lactic Acid (0.4-2.0) Calcium (8.4-10.2) mg/dL Total Bilirubin (0.2-1.3) mg/dL AST (17-59) U/L ALT (0-50) U/L Alkaline Phosphatase (38-126) U/L Troponin I < 0.012 < 0.012 (0.000-0.034) ng/mL Serum Total Protein (6.3-8.2) g/dL Albumin (3.5-5.0) g/dL Urine Color (YELLOW) Urine Appearance (CLEAR) Urine pH (5-6) Ur Specific [place] (1.005-1.025) Urine Protein (Negative) Urine Ketones (NEGATIVE) Urine Blood (0-5) Daniel/ul Urine Nitrite (NEGATIVE) Urine Bilirubin (NEGATIVE) Urine Urobilinogen (0-1) mg/dL Ur Leukocyte Esterase (NEGATIVE) Urine WBC (Auto) (0-5) /HPF Urine RBC (Auto) (0-2) /HPF U Epithel Cells (Auto) (FEW) /HPF Urine Bacteria (Auto) (NEGATIVE) /HPF U Non-Squamous Epi Cells (FEW) /HPF Urine Glucose (NEGATIVE) mg/dL Influenza Type A Ag (NEGATIVE) Influenza Type B Ag (NEGATIVE) RSV (PCR) (Negative) Group A Strep Antibody NEGATIVE (NEGATIVE) 02/11/18 02/11/18 02/11/18 Range/Units 03:30 03:30 03:30 WBC 16.5 H (4.0-10.5) K/mm3 RBC 3.72 L (4.1-5.6) M/mm3 Hgb 11.6 L (12.5-18.0) gm/dl Hct 33.3 L (42-50) % MCV 89.5 (78-100) fl MCH 31.1 (26-32) pg MCHC 34.8 (32-36) g/dl RDW 12.6 (11.5-14.0) % Plt Count 149 L (150-450) K/mm3 MPV 9.2 (6-9.5) fl Gran % 86.2 H (36.0-66.0) % Eos # (Auto) 0.01 (0-0.5) Absolute Lymphs (auto) 0.89 L (1.0-4.6) Absolute Monos (auto) 1.35 H (0.0-1.3) Lymphocytes % 5.4 L (24.0-44.0) % Monocytes % 8.2 (0.0-12.0) % Eosinophils % 0.1 (0.00-5.0) % Basophils % 0.1 (0.0-0.4) % Absolute Granulocytes 14.26 H (1.4-6.9) Segmented Neutrophils 80 H (36.-66.) % Band Neutrophils 11 H (0.0-2.0) % Lymphocytes (Manual) 3 L (24-44) % Monocytes (Manual) 6 (0.0-12.0) % Basophils # 0.01 (0-0.4) Platelet Estimate NORMAL (NORMAL) RBC Morphology ABNORMAL Anisocytosis 1+ PT (8.83-12.87) SECONDS INR (0.8-3.0) Puncture Site pCO2 (35-45) mmHg pO2 (75-100) mmHg Base Excess (-2.0-2.0) O2 Saturation (94-100) g/dF ABG pH (7.35-7.45) ABG HCO3 (22-28) ABG O2 Sat (Measured) (95-100) % Michael Test A-a Gradient a/A Ratio Hemoglobin Carboxyhemoglobin (0.0-6.9) % THgb Methemoglobin (1.4-1.5) % Potassium 3.7 (3.5-5.1) Temperature C POC O2 Flow Rate % Sodium 133 L (137-145) mmol/L Chloride 106 (98-107) mmol/L Carbon Dioxide 22 (22-30) mmol/L Anion Gap 9.1 (5-15) MEQ/L BUN 8 L (9-20) mg/dL Creatinine 0.69 (0.66-1.25) mg/dL Estimated GFR > 60.0 ML/MIN Glucose 108 H (74-106) mg/dL Lactic Acid (0.4-2.0) Calcium 7.5 L D (8.4-10.2) mg/dL Total Bilirubin 1.00 (0.2-1.3) mg/dL AST 34 (17-59) U/L ALT 103 H (0-50) U/L Alkaline Phosphatase 73 (38-126) U/L Troponin I < 0.012 (0.000-0.034) ng/mL Serum Total Protein 5.1 L (6.3-8.2) g/dL Albumin 2.4 L (3.5-5.0) g/dL Urine Color (YELLOW) Urine Appearance (CLEAR) Urine pH (5-6) Ur Specific [place] (1.005-1.025) Urine Protein (Negative) Urine Ketones (NEGATIVE) Urine Blood (0-5) Daniel/ul Urine Nitrite (NEGATIVE) Urine Bilirubin (NEGATIVE) Urine Urobilinogen (0-1) mg/dL Ur Leukocyte Esterase (NEGATIVE) Urine WBC (Auto) (0-5) /HPF Urine RBC (Auto) (0-2) /HPF U Epithel Cells (Auto) (FEW) /HPF Urine Bacteria (Auto) (NEGATIVE) /HPF U Non-Squamous Epi Cells (FEW) /HPF Urine Glucose (NEGATIVE) mg/dL Influenza Type A Ag (NEGATIVE) Influenza Type B Ag (NEGATIVE) RSV (PCR) (Negative) Group A Strep Antibody (NEGATIVE) 02/11/18 Range/Units 06:05 WBC (4.0-10.5) K/mm3 RBC (4.1-5.6) M/mm3 Hgb (12.5-18.0) gm/dl Hct (42-50) % MCV (78-100) fl MCH (26-32) pg MCHC (32-36) g/dl RDW (11.5-14.0) % Plt Count (150-450) K/mm3 MPV (6-9.5) fl Gran % (36.0-66.0) % Eos # (Auto) (0-0.5) Absolute Lymphs (auto) (1.0-4.6) Absolute Monos (auto) (0.0-1.3) Lymphocytes % (24.0-44.0) % Monocytes % (0.0-12.0) % Eosinophils % (0.00-5.0) % Basophils % (0.0-0.4) % Absolute Granulocytes (1.4-6.9) Segmented Neutrophils (36.-66.) % Band Neutrophils (0.0-2.0) % Lymphocytes (Manual) (24-44) % Monocytes (Manual) (0.0-12.0) % Basophils # (0-0.4) Platelet Estimate (NORMAL) RBC Morphology Anisocytosis PT (8.83-12.87) SECONDS INR (0.8-3.0) Puncture Site pCO2 (35-45) mmHg pO2 (75-100) mmHg Base Excess (-2.0-2.0) O2 Saturation (94-100) g/dF ABG pH (7.35-7.45) ABG HCO3 (22-28) ABG O2 Sat (Measured) (95-100) % Michael Test A-a Gradient a/A Ratio Hemoglobin Carboxyhemoglobin (0.0-6.9) % THgb Methemoglobin (1.4-1.5) % Potassium (3.5-5.1) Temperature C POC O2 Flow Rate % Sodium (137-145) mmol/L Chloride (98-107) mmol/L Carbon Dioxide (22-30) mmol/L Anion Gap (5-15) MEQ/L BUN (9-20) mg/dL Creatinine (0.66-1.25) mg/dL Estimated GFR ML/MIN Glucose (74-106) mg/dL Lactic Acid (0.4-2.0) Calcium (8.4-10.2) mg/dL Total Bilirubin (0.2-1.3) mg/dL AST (17-59) U/L ALT (0-50) U/L Alkaline Phosphatase (38-126) U/L Troponin I < 0.012 (0.000-0.034) ng/mL Serum Total Protein (6.3-8.2) g/dL Albumin (3.5-5.0) g/dL Urine Color (YELLOW) Urine Appearance (CLEAR) Urine pH (5-6) Ur Specific [place] (1.005-1.025) Urine Protein (Negative) Urine Ketones (NEGATIVE) Urine Blood (0-5) Daniel/ul Urine Nitrite (NEGATIVE) Urine Bilirubin (NEGATIVE) Urine Urobilinogen (0-1) mg/dL Ur Leukocyte Esterase (NEGATIVE) Urine WBC (Auto) (0-5) /HPF Urine RBC (Auto) (0-2) /HPF U Epithel Cells (Auto) (FEW) /HPF Urine Bacteria (Auto) (NEGATIVE) /HPF U Non-Squamous Epi Cells (FEW) /HPF Urine Glucose (NEGATIVE) mg/dL Influenza Type A Ag (NEGATIVE) Influenza Type B Ag (NEGATIVE) RSV (PCR) (Negative) Group A Strep Antibody (NEGATIVE) Radiology Exams: Radiology Procedures Category Date Time Status CHEST 2 VIEWS (PA AND LAT) Routine Exams 02/11/18 10:19 Taken CHEST 2 VIEWS (PA AND LAT) Stat Exams 02/10/18 18:03 Completed CHEST WITH CONTRAST [CT] Stat Exams 02/10/18 18:55 Completed Assessment/Plan (1) Sepsis Current Visit: Yes Status: Acute Assessment & Plan: Blood culture and urine culture in lab; patient was aggressively rehydrated; chest X-ray shows continued pneumonia; Continue with zosyn and azithromycin. (2) Pneumonia Current Visit: Yes Status: Acute Qualifiers: Laterality: right Lung location: lower lobe of lung Assessment & Plan: Continue treatment as above; 2L NC; Discussed with telephone operator receptionist, Dr. Aileen Hill who states to call if any further concerns and also states it is to be expected to for the chest X-ray to look slightly worse at this time and also for there to be the small bilat pleural effusions. His wbc count has improved form yesterday. Code(s): J18.9 - PNEUMONIA, UNSPECIFIED ORGANISM (3) Pneumonia Current Visit: Yes Status: Acute Qualifiers: Lung location: middle lobe of lung Code(s): J18.9 - PNEUMONIA, UNSPECIFIED ORGANISM (4) Tobacco abuse Current Visit: Yes Status: Acute Assessment & Plan: Patient reports he wants to quit. He is currently using a nicotine patch. Code(s): Z72.0 - TOBACCO USE
--- NOTE | 2018-02-11 18:43 | XRAY ---
Indication: Pneumonia. Comparison: One day earlier. Portable chest demonstrates worsening right middle and right lower lobe pneumonic infiltrates with new small effusion. Also new subtle left base infiltrate/atelectasis/effusion. Remaining heart and lungs unremarkable. Comment: Preliminary interpretation was made by [facility]. No discrepancy.
[2018-02-11] MEDS: NICODERM CQ 14 MG TOP SCH ×2 (21:35→21:44)
[2018-02-11] MEDS: ENOXAPARIN SODIUM SQ SCH (21:35)
[2018-02-11] MEDS ORDERED: Zithromax 500 MG/ 250 ML NaCl Premix 500 MG/250 ML IVPB IV SCH (22:00)
[2018-02-12] MEDS: Zosyn 3.375GM/100 Ml D5W 3.375 GM/100 ML IVPB IV SCH ×4 (00:32→19:19)
[2018-02-12] MEDS: DILAUDID 2 MG INJECTION IV PRN ×4 (05:14→23:29)
[2018-02-12 06:35] LABS: Hematocrit 36.1 % (42-50); Mean Cell Volume 91.2 fl (78-100); Mean Corpuscular Hemoglobin 30.3 pg (26-32); Mean Corpuscular Hgb Concent. 33.2 g/dl (32-36); Mean Platelet Volume 9.7 fl (6-9.5); Platelet Count 189 K/mm3 (150-450); Red Blood Count 3.96 M/mm3 (4.1-5.6); White Blood Count 8.3 K/mm3 (4.0-10.5)
[2018-02-12 06:41] LABS: ALBUMIN 2.6 g/dL (3.5-5.0); ALKALINE PHOSPHATASE 75 U/L (38-126); ANION GAP 7.9 MEQ/L (5-15); BLOOD UREA NITROGEN 8 mg/dL (9-20); CHLORIDE 107 mmol/L (98-107); Carbon Dioxide 28 mmol/L (22-30); Creatinine 1 0.77 mg/dL (0.66-1.25); Glucose 96 mg/dL (74-106); Potassium 3.6 mmol/L (3.5-5.1); SGOT/AST 44 U/L (17-59); SGPT/ALT 91 U/L (0-50); SODIUM 139 mmol/L (137-145); Total Protein 5.3 g/dL (6.3-8.2)
[2018-02-12] MEDS: MOTRIN 600 MG PO PRN (08:45)
[2018-02-12] MEDS: Sodium Chloride 0.9% 1000 ML 1,000 ML IV SCH (10:30)
--- NOTE | 2018-02-12 11:02 | PCM.NOTE ---
Date and Time: 02/12/18 1059 Subjective Assessment: He reports continuing to feel better. Still some right sided chest pain. He has a cough. He has been able to eat well. He reports continued improvement. - Review of Systems Constitutional: No Symptoms Eyes: No Symptoms Ears, Nose, & Throat: No Symptoms Respiratory: Cough Cardiac: No Symptoms Abdominal/Gastrointestinal: No Symptoms Genitourinary Symptoms: No Symptoms Musculoskeletal: Other (right sided chest wall pain) Skin: No Symptoms Objective Exam General Appearance: no apparent distress, alert, other (significant other in bed with him) Neurologic Exam: alert, cooperative, normal mood/affect Skin Exam: normal color, warm, dry, No rash Respiratory Exam: airway intact, diminished breath sounds, other (decreased breath sounds in right lower lung field, no wheezes, no crackles), No respiratory distress, No accessory muscle use, No stridor Cardiovascular Exam: regular rate/rhythm, normal heart sounds, No murmur, No friction rub, No gallop Gastrointestinal/Abdomen Exam: soft, normal bowel sounds, No tenderness, No distention, No mass, No guarding Extremity Exam: other (no c/c/e) OBJECTIVE DATA Vital Signs: Vital Signs - 24 hr Temp Pulse Resp BP Pulse Ox 02/12/18 08:00 98.8 F 65 19 121/78 97 02/12/18 04:00 99.1 F 82 24 116/69 97 02/12/18 00:01 89 02/12/18 00:00 98.6 F 89 18 110/71 94 L 02/11/18 20:00 98.8 F 105 H 24 117/74 95 02/11/18 18:00 98.5 F 93 H 23 120/72 96 02/11/18 16:00 93 H 18 02/11/18 14:00 98.5 F 92 H 18 110/67 95 02/11/18 12:09 95 H 20 96 02/11/18 12:00 91 H 19 Oxygen-Last 24 hours O2 Percentage 2 Liters = 28% O2 Percentage 2 Liters = 28% O2 Percentage 2 Liters = 28% O2 Percentage 2 Liters = 28% Oxygen Flowrate (L/min)-RT 2 Oxygen Flowrate (L/min)-RT 2 Oxygen Flowrate (L/min)-RT 2 Pain Assessment - Last Documented Pain Intensity 5 Pain Scale Used 0-10 Pain Scale Intake and Output: Intake & Output 02/10/18 02/11/18 02/12/18 02/13/18 06:59 06:59 06:59 06:59 Intake Total 3206 4544 Output Total 1500 3200 700 Balance 1706 1344 -700 Weight 93.5 kg Lab Results: Lab Results-Last 24 Hours 02/12/18 02/12/18 Range/Units 05:15 05:15 WBC 8.3 (4.0-10.5) K/mm3 RBC 3.96 L (4.1-5.6) M/mm3 Hgb 12.0 L (12.5-18.0) gm/dl Hct 36.1 L (42-50) % MCV 91.2 (78-100) fl MCH 30.3 (26-32) pg MCHC 33.2 (32-36) g/dl RDW 13.0 (11.5-14.0) % Plt Count 189 (150-450) K/mm3 MPV 9.7 H (6-9.5) fl Sodium 139 (137-145) mmol/L Potassium 3.6 (3.5-5.1) mmol/L Chloride 107 (98-107) mmol/L Carbon Dioxide 28 (22-30) mmol/L Anion Gap 7.9 (5-15) MEQ/L BUN 8 L (9-20) mg/dL Creatinine 0.77 (0.66-1.25) mg/dL Estimated GFR > 60.0 ML/MIN Glucose 96 (74-106) mg/dL Calcium 8.0 L (8.4-10.2) mg/dL Total Bilirubin 0.40 (0.2-1.3) mg/dL AST 44 (17-59) U/L ALT 91 H (0-50) U/L Alkaline Phosphatase 75 (38-126) U/L Serum Total Protein 5.3 L (6.3-8.2) g/dL Albumin 2.6 L (3.5-5.0) g/dL Radiology Exams: Radiology Procedures Category Date Time Status CHEST 2 VIEWS (PA AND LAT) Routine Exams 02/11/18 10:19 Completed CHEST 2 VIEWS (PA AND LAT) Stat Exams 02/10/18 18:03 Completed CHEST WITH CONTRAST [CT] Stat Exams 02/10/18 18:55 Completed Assessment/Plan (1) Sepsis Current Visit: Yes Status: Acute Onset Date: ~02/10/18 Assessment & Plan: Much improved. Continue zosyn and azithromycin. Sputum gram stain has gram pos rods and culture is in lab. Blood cultures are no growth. (2) Pneumonia Current Visit: Yes Status: Deleted Qualifiers: Laterality: right Lung location: lower lobe of lung Assessment & Plan: Antibiotics as above; wean oxygen as tolerated; will repeat Chest X-ray tomorrow. If continued improvement and able to wean off oxygen, may consider discharge tomorrow. Code(s): J18.9 - PNEUMONIA, UNSPECIFIED ORGANISM (3) Pneumonia Current Visit: Yes Status: Acute Onset Date: ~02/10/18 Qualifiers: Lung location: middle lobe of lung Code(s): J18.9 - PNEUMONIA, UNSPECIFIED ORGANISM (4) Tobacco abuse Current Visit: Yes Status: Acute Onset Date: ~02/10/18 Assessment & Plan: Patient has been counseled that he needs to quit smoking. Code(s): Z72.0 - TOBACCO USE
[2018-02-12 12:22] LABS: Eosinophil 1 % (0.00-3.0); Lymphocytes 28 % (24-44); Monocyte 1 % (0.0-12.0); Neutrophils 70 % (36.-66.); Platelet Estimate NORMAL (NORMAL); Total Cells Counted 100
[2018-02-12] MEDS: Zithromax 500 MG/ 250 ML NaCl Premix 500 MG/250 ML IVPB IV SCH (23:18)
[2018-02-12] MEDS: ENOXAPARIN SODIUM SQ SCH (23:18)
[2018-02-12] MEDS: TYLENOL 325 MG PO PRN (23:30)
[2018-02-12] MEDS: NICODERM CQ 14 MG TOP SCH (23:33)
[2018-02-13] MEDS: Zosyn 3.375GM/100 Ml D5W 3.375 GM/100 ML IVPB IV SCH ×4 (01:14→18:05)
[2018-02-13] MEDS: Sodium Chloride 0.9% 1000 ML 1,000 ML IV SCH ×3 (03:07→20:34)
[2018-02-13 05:41] LABS: Hematocrit 35.1 % (42-50); Hemoglobin 12.1 gm/dl (12.5-18.0); Mean Cell Volume 88.4 fl (78-100); Mean Corpuscular Hgb Concent. 34.5 g/dl (32-36); Mean Platelet Volume 9.1 fl (6-9.5); Platelet Count 230 K/mm3 (150-450); Red Blood Count 3.97 M/mm3 (4.1-5.6); Red Cell Distribution Width 12.6 % (11.5-14.0); White Blood Count 6.3 K/mm3 (4.0-10.5)
[2018-02-13 05:44] LABS: Mean Corpuscular Hemoglobin 30.4 pg (26-32)
[2018-02-13 06:03] LABS: ALBUMIN 2.5 g/dL (3.5-5.0); ALKALINE PHOSPHATASE 86 U/L (38-126); ANION GAP 9.7 MEQ/L (5-15); BLOOD UREA NITROGEN 6 mg/dL (9-20); CHLORIDE 108 mmol/L (98-107); Carbon Dioxide 24 mmol/L (22-30); Creatinine 1 0.63 mg/dL (0.66-1.25); Glucose 96 mg/dL (74-106); Potassium 3.6 mmol/L (3.5-5.1); SGOT/AST 40 U/L (17-59); SGPT/ALT 83 U/L (0-50); SODIUM 138 mmol/L (137-145); Total Protein 5.3 g/dL (6.3-8.2)
[2018-02-13 06:55] LABS: Eosinophil 2 % (0.00-3.0); Lymphocytes 15 % (24-44); Monocyte 6 % (0.0-12.0); Neutrophils 77 % (36.-66.); Platelet Estimate NORMAL (NORMAL); Total Cells Counted 100; Toxic Granulation 1+
--- NOTE | 2018-02-13 07:57 | HP ---
HISTORY OF PRESENT ILLNESS: This is a 32 year-old man without a physician in the local area who presented to the emergency department. He reports he was having some right lower rib pain as well as fever up 105F today and a cough. He reports his fever has been going on for about three days. He has felt sick for one to two weeks but got worse the past few days. He reports his cough did have some phlegm that was blood-tinged but now is more clear yellow. He reports a decreased appetite but feels hungry now. He states he had a 10 pound weight loss in the past week. He is able to take fluids and feels like he wants to take a regular diet at this time. His significant other is now sick with similar symptoms. He denies any history of pneumonia like this in the past. REVIEW OF SYSTEMS: No nausea, vomiting or diarrhea. No rash. No swelling. No difficulty urinating otherwise review of systems is negative. PAST MEDICAL HISTORY: He has history of tobacco abuse. PAST SURGICAL HISTORY: The patient had pins to his finger and surgery on a foot. MEDICATIONS: None. ALLERGIES: NKDA. SOCIAL HISTORY: He reports he smoked one half pack per day. He is currently unemployed. He does not work around any fumes or dust when he does work. He denies any alcohol use. He denies any recent illicit drug use. He reports it has been at least a year since he has used any illicit drugs. He denies exposure to anyone that has been in long-term or being in long-term himself. FAMILY HISTORY: His mother is and had cancer. His father is and had coronary artery disease and in his 60's. PHYSICAL EXAMINATION: VITAL SIGNS: Temperature current 100.7F, temperature max 102.9F, heart rate 108 to 133 currently 108, respiratory rate 24 to 38 currently 24, blood pressure 93 to 61 over 133 to 73 and currently 93/61. Oxygen saturation 97% on room air on admission and now 96 to 98% on 2 liters nasal cannula. GENERAL: The patient is a lying in bed in no acute distress. His significant other is at the bedside. He answers questions appropriately. CVS: His heart is tachycardic with regular rhythm. No murmurs, gallops or rubs are appreciated. CHEST: No tachypnea. No retractions. Breath sounds were not audible on the right lower lung field. Clear on the left. No wheezing. EXTREMITIES: No clubbing, cyanosis or edema. He has +2 radial pulses and +1 dorsalis pedis pulses. SKIN: Warm, dry and intact. LABORATORY DATA AND TESTS: Chest x-ray right middle and lower lung field infiltrates. A chest CT was done and also reveals extensive right lower lung and right middle lung infiltrates. Please see the radiologist dictation for the full report. White blood cell count was 22,100, hemoglobin 14, PLT count 207,000. International normalized ratio 1.24. Sodium 133, chloride 97, AST 65, ALT 152. UA was negative. Influenza A/B, respiratory syncytial virus and Strep were all negative. Blood cultures are in lab. ASSESSMENT AND PLAN: 1) SEPSIS DUE TO PNEUMONIA: He has been started on Zosyn and azithromycin. I will plan to continue with these. He is on oxygen 2 liters nasal cannula. Will continue with close monitoring by respiratory therapy. He has been admitted to ICU for right middle and right lower lobe pneumonia care as above. Will check a sputum culture as well. Will add deep venous thrombosis prophylaxis. Will plan to use Lovenox. 2) TOBACCO ABUSE: The patient reports that he wants to quit smoking. Will plan to use a nicotine patch if he would like. 3) LUNG NODULE: This was seen on the CT scan, will plan to follow up with that as an outpatient. 4) HYPONATREMIA: He is on fluids at this time. Will recheck his labs in the morning. 5) AST AND ALT SLIGHTLY ELEVATED: Will continue to follow these and most likely due to the infection.
--- NOTE | 2018-02-13 08:41 | PCM.NOTE ---
Date and Time: 02/13/18829 Subjective Assessment: Patient reports not as good of an appetite today and vomited x 1 yesterday. He feels a little constipated. He states his breathing feels better and he has been able to be up and moving around his room. He still has some right sided chest pain. - Review of Systems Constitutional: No Symptoms Eyes: No Symptoms Ears, Nose, & Throat: No Symptoms Respiratory: Cough Cardiac: No Symptoms Abdominal/Gastrointestinal: No Symptoms Genitourinary Symptoms: No Symptoms Musculoskeletal: Other (right sided chest wall pain) Objective Exam General Appearance: no apparent distress, other (significant other in bed with him) Neurologic Exam: alert, cooperative, normal mood/affect Skin Exam: normal color, warm, dry, No rash Respiratory Exam: normal breath sounds, lungs clear, other (He has good air exchange at right lower lung field today.), No respiratory distress, No accessory muscle use, No crackles/rales, No rhonchi, No wheezing Cardiovascular Exam: regular rate/rhythm, normal heart sounds, No murmur, No friction rub, No gallop Gastrointestinal/Abdomen Exam: soft, normal bowel sounds, No tenderness, No distention, No mass Extremity Exam: other (no c/c/e) OBJECTIVE DATA Vital Signs: Vital Signs - 24 hr Temp Pulse Resp BP Pulse Ox 02/13/18 07:24 98.4 F 94 H 18 115/69 96 02/13/18 04:00 98.9 F 95 H 18 103/58 94 L 02/13/18 00:29 100.1 F 97 H 20 132/71 99 02/13/18 00:00 20 02/12/18 22:08 95 02/12/18 20:32 97 H 18 95 02/12/18 20:10 98.3 F 89 18 125/74 97 02/12/18 20:00 18 02/12/18 16:46 97.5 F 92 H 20 116/65 99 02/12/18 11:47 98.8 F 88 21 123/78 92 L Pain Assessment - Last Documented Pain Intensity 0 Pain Scale Used 0-10 Pain Scale Intake and Output: Intake & Output 02/11/18 02/12/18 02/13/18 02/14/18 06:59 06:59 06:59 06:59 Intake Total 3206 4544 3663 Output Total 1500 3200 1600 Balance 1706 1344 2063 Weight 93.5 kg 93.2 kg Lab Results: Lab Results-Last 24 Hours 02/12/18 02/13/18 02/13/18 Range/Units 05:15 05:23 05:23 WBC 6.3 (4.0-10.5) K/mm3 RBC 3.97 L (4.1-5.6) M/mm3 Hgb 12.1 L (12.5-18.0) gm/dl Hct 35.1 L (42-50) % MCV 88.4 (78-100) fl MCH 30.4 (26-32) pg MCHC 34.5 (32-36) g/dl RDW 12.6 (11.5-14.0) % Plt Count 230 (150-450) K/mm3 MPV 9.1 (6-9.5) fl Segmented Neutrophils 70 H 77 H (36.-66.) % Lymphocytes (Manual) 28 15 L (24-44) % Monocytes (Manual) 1 6 (0.0-12.0) % Eosinophils (Manual) 1 2 (0.00-3.0) % Toxic Granulation 1+ Platelet Estimate NORMAL NORMAL (NORMAL) RBC Morphology NORMAL NORMAL Sodium 138 (137-145) mmol/L Potassium 3.6 (3.5-5.1) mmol/L Chloride 108 H (98-107) mmol/L Carbon Dioxide 24 (22-30) mmol/L Anion Gap 9.7 (5-15) MEQ/L BUN 6 L (9-20) mg/dL Creatinine 0.63 L (0.66-1.25) mg/dL Estimated GFR > 60.0 ML/MIN Glucose 96 (74-106) mg/dL Calcium 8.0 L (8.4-10.2) mg/dL Total Bilirubin 0.50 (0.2-1.3) mg/dL AST 40 (17-59) U/L ALT 83 H (0-50) U/L Alkaline Phosphatase 86 (38-126) U/L Serum Total Protein 5.3 L (6.3-8.2) g/dL Albumin 2.5 L (3.5-5.0) g/dL Radiology Exams: Radiology Procedures Category Date Time Status CHEST 2 VIEWS (PA AND LAT) Routine Exams 02/11/18 10:19 Completed CHEST 2 VIEWS (PA AND LAT) Routine Exams 02/13/18 09:00 Ordered Assessment/Plan (1) Sepsis Current Visit: Yes Status: Acute Onset Date: ~02/10/18 Assessment & Plan: Continue zosyn and azithromycin. Much improved. Will decrease IV fluids. (2) Pneumonia Current Visit: Yes Status: Deleted Qualifiers: Laterality: right Lung location: lower lobe of lung Assessment & Plan: Check Chest X-ray today; he is on room air at this time; may plan for discharge later today if no vomiting and chest X-ray shows improvement. He will need to go home on antibiotics. Will plan for Augmentin and azithromycin as an outpatient. Blood cultures were no growth and sputum culture grew normal respiratory ang. Code(s): J18.9 - PNEUMONIA, UNSPECIFIED ORGANISM (3) Pneumonia Current Visit: Yes Status: Acute Onset Date: ~02/10/18 Qualifiers: Lung location: middle lobe of lung Code(s): J18.9 - PNEUMONIA, UNSPECIFIED ORGANISM (4) Tobacco abuse Current Visit: Yes Status: Acute Onset Date: ~02/10/18 Assessment & Plan: Patient has been counseled to stop smoking. Code(s): Z72.0 - TOBACCO USE
--- NOTE | 2018-02-13 09:40 | XRAY ---
Indication: Pneumonia. Comparison: February 11, 2018. PA/lateral chest demonstrates moderate clearing of the previous right middle/right lower lobe infiltrates and small effusion with mild residual still present. Stable subtle left base infiltrate/atelectasis/effusion. Remaining chest unremarkable.
[2018-02-13] MEDS: MOTRIN 600 MG PO PRN ×2 (10:28→18:09)
[2018-02-13] MEDS: DILAUDID 2 MG INJECTION IV PRN ×2 (12:18→20:29)
[2018-02-13] MEDS: Zithromax 500 MG/ 250 ML NaCl Premix 500 MG/250 ML IVPB IV SCH (21:55)
[2018-02-13] MEDS: ENOXAPARIN SODIUM SQ SCH (21:56)
[2018-02-13] MEDS: NICODERM CQ 14 MG TOP SCH (21:56)
[2018-02-14] MEDS: Zosyn 3.375GM/100 Ml D5W 3.375 GM/100 ML IVPB IV SCH ×2 (00:43→05:58)
[2018-02-14 06:12] LABS: Hematocrit 35.6 % (42-50); Hemoglobin 12.5 gm/dl (12.5-18.0); Mean Cell Volume 88.6 fl (78-100); Mean Corpuscular Hgb Concent. 35.1 g/dl (32-36); Mean Platelet Volume 9.3 fl (6-9.5); Platelet Count 255 K/mm3 (150-450); Red Blood Count 4.02 M/mm3 (4.1-5.6); Red Cell Distribution Width 12.6 % (11.5-14.0); White Blood Count 7.8 K/mm3 (4.0-10.5)
[2018-02-14 07:18] LABS: Eosinophil 1 % (0.00-3.0); Lymphocytes 8 % (24-44); Monocyte 8 % (0.0-12.0); Neutrophils 83 % (36.-66.); Total Cells Counted 100
[2018-02-14 07:19] LABS: Platelet Estimate NORMAL (NORMAL); Toxic Granulation 1+
--- NOTE | 2018-02-14 08:34 | PCM.NOTE ---
Date and Time: 02/14/18828 Subjective Assessment: Patient reports that his breathing seems a little bit worse at night. He needed one breathing treatment last night. He reports his appetite was better. He reports he does have a place to go to when discharged as per social work note, it sounds like they will be returning to the rental house. He was able to ambulate in the halls yesterday. He reports he continues to cough of some sputum that is tinged with blood. RT noted an O2 sat of 90% this AM, but did not need to place him back on oxygen. He continues to want to quit smoking and would like nicotine patches at discharge. - Review of Systems Constitutional: No Symptoms Eyes: No Symptoms Ears, Nose, & Throat: No Symptoms Respiratory: Cough Cardiac: No Symptoms Abdominal/Gastrointestinal: No Symptoms Genitourinary Symptoms: No Symptoms Musculoskeletal: No Symptoms Skin: No Symptoms Neurological: No Symptoms Objective Exam General Appearance: no apparent distress Neurologic Exam: alert, cooperative, normal mood/affect Skin Exam: normal color, warm, dry, No rash Respiratory Exam: normal breath sounds, lungs clear, No diminished breath sounds , No accessory muscle use, No prolonged expirations, No crackles/rales, No rhonchi, No wheezing, No stridor Cardiovascular Exam: regular rate/rhythm, normal heart sounds, No murmur, No friction rub, No gallop Gastrointestinal/Abdomen Exam: soft, normal bowel sounds, No tenderness, No distention, No mass Extremity Exam: other (no c/c/e) OBJECTIVE DATA Vital Signs: Vital Signs - 24 hr Temp Pulse Resp BP Pulse Ox 02/14/18 07:24 97 H 16 90 L 02/14/18 07:13 97.8 F 76 20 118/70 97 02/14/18 04:00 98.9 F 89 20 113/61 92 L 02/14/18 00:00 98.4 F 93 H 18 113/61 92 L 02/13/18 19:54 18 02/13/18 19:30 98.5 F 93 H 18 137/80 94 L 02/13/18 15:40 18 02/13/18 15:38 98.2 F 86 18 115/69 95 02/13/18 13:37 90 L 02/13/18 13:35 84 18 90 L 02/13/18 12:00 98.6 F 93 H 18 138/75 95 Pain Assessment - Last Documented Pain Intensity 0 Pain Scale Used 0-10 Pain Scale Intake and Output: Intake & Output 02/12/18 02/13/18 02/14/18 02/15/18 06:59 06:59 06:59 06:59 Intake Total 4544 3663 3259 Output Total 3200 1600 Balance 1344 2063 3259 Weight 93.2 kg 97.6 kg Lab Results: Lab Results-Last 24 Hours 02/14/18 Range/Units 05:30 WBC 7.8 (4.0-10.5) K/mm3 RBC 4.02 L (4.1-5.6) M/mm3 Hgb 12.5 (12.5-18.0) gm/dl Hct 35.6 L (42-50) % MCV 88.6 (78-100) fl MCH 31.0 (26-32) pg MCHC 35.1 (32-36) g/dl RDW 12.6 (11.5-14.0) % Plt Count 255 (150-450) K/mm3 MPV 9.3 (6-9.5) fl Segmented Neutrophils 83 H (36.-66.) % Lymphocytes (Manual) 8 L (24-44) % Monocytes (Manual) 8 (0.0-12.0) % Eosinophils (Manual) 1 (0.00-3.0) % Toxic Granulation 1+ Platelet Estimate NORMAL (NORMAL) RBC Morphology NORMAL Radiology Exams: Radiology Procedures Category Date Time Status CHEST 2 VIEWS (PA AND LAT) Routine Exams 02/13/18 09:00 Completed Multi-Disciplinary Progress Notes: Multi-Disciplinary Progress Notes 02/13/18 16:41 Case Management Note by Lala Styles PT AND HIS S/W DRIFTMAN RE: EVICTION. RN PLASTIC SURGERY WILL COME THIS EVENING TO SPEAK W/ THEM REGARDING RESOURCES/HOUSING AVAILABLE IF NEEDED. Initialized on 02/13/18 16:41 - END OF NOTE 02/13/18 09:40 Case Management Note by Lala Styles Contacted social worker health services air conditioning engineer, Kathleen Jones per order and request to talk to social worker health services re: eviction from rental house. Initialized on 02/13/18 09:40 - END OF NOTE Assessment/Plan (1) Sepsis Current Visit: Yes Status: Resolved Onset Date: ~02/10/18 Assessment & Plan: Resolved now. His blood pressure, heart rate and temperature are stable. (2) Pneumonia Current Visit: Yes Status: Deleted Qualifiers: Laterality: right Lung location: lower lobe of lung Assessment & Plan: He has received 4 days of azitromycin. Will plan to discharge with one more day of this. He has received Zosyn for 4 days. Will plan to finish 6 more days or Augmentin. Will also discharge with albuterol inhaler as needed and this was discussed with the patient. Will plan to discharge today if oxygen saturation improves from 90% this AM. Patient's questions were answered. He was also agreeable to receiving a flu immunization today. Code(s): J18.9 - PNEUMONIA, UNSPECIFIED ORGANISM (3) Pneumonia Current Visit: Yes Status: Acute Onset Date: ~02/10/18 Qualifiers: Lung location: middle lobe of lung Code(s): J18.9 - PNEUMONIA, UNSPECIFIED ORGANISM (4) Tobacco abuse Current Visit: Yes Status: Acute Onset Date: ~02/10/18 Assessment & Plan: Will plan to discharge with script for nicotine patches. Code(s): Z72.0 - TOBACCO USE
[2018-02-14 08:36] VITALS: O2SAT 95
--- NOTE | 2018-02-14 08:51 | PCM.DCORD ---
- Discharge Discharge Date: 02/14/18 Disposition: Home, Self-Care Condition: Good Prescriptions: New Amox Tr/Potass Clav. 875 mg [Augmentin 875-125 Tablet] 1 tablet PO BID #12 tablet Nicotine 14 mg [Nicoderm Cq 14 mg] 14 mg TOP Q24H #30 patch Albuterol Sulfate [Proair Hfa] 8.5 gm IH Q4H PRN #1 [id number] PRN Reason: Shortness Of Breath/Wheezing Acetaminophen 325 mg [Tylenol 325 mg] 650 mg PO Q4H PRN PRN tablet PRN Reason: Pain And/Or Fever Azithromycin 250 mg [Zithromax 250 MG TABLET] 250 mg PO DAILY #1 tablet Follow up with: ALDA PEREZ [Primary Care Provider] - 1 Week
[2018-02-14] MEDS: TYLENOL 325 MG PO PRN (08:55)
[2018-02-14] MEDS: MOTRIN 600 MG PO PRN (10:40)
[2018-02-14 11:08] VITALS: BP 124/73; PULSE 80
--- NOTE | 2018-02-14 11:08 | DS ---
DISCHARGE DIAGNOSES: 1) SEPSIS NOW RESOLVED. 2) RIGHT LOWER LOBE PNEUMONIA. 3) RIGHT MIDDLE LOBE PNEUMONIA. 4) TOBACCO ABUSE. 5) POOR SOCIAL SITUATION. DISCHARGE PHYSICAL EXAMINATION: VITALS: Temperature current 97.8F, temperature max 98.9F, heart rate 76 to 97, respiratory rate 16 to 20, blood pressure 113 to 138 over 61 to 75, weight 97.6 kg. Oxygen saturation 92 to 95% on room air currently 95%. GENERAL: The patient is sitting up in bed a pleasant talkative man in no acute distress. CVS: He has a regular rate and rhythm. No murmurs, gallops or rubs. CHEST: Clear to auscultation bilaterally. No crackles or wheezes. He has equal breath sounds. No tachypnea. No retractions. No wheezing. ABDOMEN: Soft, nontender, nondistended. EXTREMITIES: No clubbing, cyanosis or edema. SKIN: Warm, dry and intact. HOSPITAL COURSE: 1) SEPSIS DUE TO PNEUMONIA: He was started on Zosyn and azithromycin in the emergency department and given aggressive fluid rehydration. He improved quickly. He was only on 2 liters of oxygen by nasal cannula. His blood pressure was stable with the fluid resuscitation. At the time of discharge his blood pressure, heart rate and temperature were all normal. 2) PNEUMONIA RIGHT LUNG LOWER AND MIDDLE LOBE: He was started on Zosyn and azithromycin in the hospital. He received four days of azithromycin. He will receive his last dose this evening as an outpatient. He also received four days of Zosyn and will finish out with Augmentin 825/125 mg 1 tablet p.o. b.i.d. for six more days. He needed a few breathing treatments. I discussed having Albuterol inhaler at home which he is willing to use two puffs every four hours as needed. He knows to be seen if he needs it more closely than every four hours. His oxygen saturation this morning after he walked around his room RT reported was 95% and will follow up with him in the clinic within the week. He is agreeable to flu immunization. If he is still agreeable when the nurses bring it will immunize him for the flu before he is discharged. 3) TOBACCO ABUSE: He plans to quit smoking. He would like nicotine patches at home so a script was sent for 14 mg nicotine patch. 4) POOR SOCIAL SITUATION: A social services technician was consulted as during his hospitalization he reported that he had been evicted from his home and that his belongings were outside, this has been resolved with Officer [facility]ia of [facility] and actual salesman/owner of the rental house and they report that he has a place to go back to today and that all utilities are on. DISCHARGE MEDICATIONS: Please see the discharge order. FOLLOW UP: He is to follow up with me this week. DISPOSITION: The patient was discharged to home in good condition.
== END 2018-02-14 11:15 | disposition home or self-care (01) | DRG 871 ==
LOC: ED 17:32 → ICU 21:54 → OBSVTOIN 21:54 → MED SURG 02-12 11:26
PROVIDERS: ADMIT Internal Medicine; ATTEND Internal Medicine
DX: A41.9 Sepsis, unspecified organism (principal); J18.9 Pneumonia, unspecified organism; E87.1 Hypo-osmolality and hyponatremia; F60.7 Dependent personality disorder; Z72.0 Tobacco use; Z60.9 Problem related to social environment, unspecified; R91.1 Solitary pulmonary nodule; R94.5 Abnormal results of liver function studies
CPT/HCPCS: 36000; 36415; 36600; 71046; 71260; 80053; 81001; 82375; 82803; 83605; 84484; 85025; 85610; 87040; 87070; 87631; 87651; 93005; 93041; 94150; 94640; 94760; 96374; 96375; 99285; J0456; J1170; J1650; J2405; J2543; A9270-GY